=== PATIENT | female | born 1955 ===

== ENCOUNTER 2016-11-16 22:03 | Emergency (ER) | payer OTHER ==
[2016-11-16] MEDS ORDERED: IBUPROFEN 400 MG TABLET (FP) PO ONE (22:10)
--- NOTE | 2016-11-16 22:16 | PDOC ---
History of Present Illness - General Chief Complaint: Bone Injury Stated Complaint: PAIN AND SWELLING TO LEFT ANKLE Time Seen by Provider: 11/16/16 22:09 History Source: Patient, Family Exam Limitations: Language Barrier - History of Present Illness Initial Comments: 11/16/16 22:10 61y F hx of htn, hl, glaucoma, presents with L ankle and foot pain. The pt was walking around in a grassy area this afternoon and tripped, she had mild pain in the L ankle imediatly but was able to ambulate. The pain worsened to the point it is difficult to ambulate. The pt denies any head injury, loc, neck pain , back pain. She also endorse scraping her R knee on the pavement edge. She landed in a seated position. Pt denies any chest pain, shortness, of breath, abdominal pain. 11/16/16 22:18 history taken in uzbek with assistance of pts family member Past History - Past Medical History Allergies/Adverse Reactions: Allergies Allergy/AdvReac Type Severity Reaction Status Date / Time No Known Allergies Allergy Verified 11/16/16 22:17 Review of Systems - Review of Systems Able to Perform ROS?: Yes Comments:: 11/16/16 22:12 Constitutional - no reported Fever, Chills, HEENT: no reported vision changes, s Respiratory: no reported cough, Cardiac: no reported chest pain, Abd/GI: no reported abd pain, nausea, vomiting, : no reported dysuria, frequency, discharge Musculskelatal - +L ankle pain and swelling, no reported back pain, joint swelling skin - +R knee abrasion no reported bruising, erythema, rash neurological: no reported headache, numbness, focal weakness, tingling, ataxia, hematologic: no reported anemia, easy bruising, easy bleeding *Physical Exam - Physical Exam Comments: 11/16/16 22:16 GENERAL: The patient is awake, alert, and fully oriented, Nontoxic - in no acute distress. HEAD: Normocephalic, atraumatic. NECK: Normal range of motion, supple Back: No midline tenderness to the cervical, thoracic or lumbar spine Musculoskelatal: FROM of b/l shoulders, elbows, wrist. FROM of hips, knees, ankles - No signs of ecchymosis, erythema, or crepitus noted on palpation extremities, chest wall, clavicals, ribs, back. ABDOMEN: Soft, nontender, EXTREMITIES: Normal range of motion of b/l hips, b/l knees, R ankle, L ankle mild edema diffusely tender in the lateral foot along 5th metatarsal, no skin breakdown. no tenderness in the proximal tib/fib, superifical abrasions on L anterior knee without bony tenderness, no active bleeding, clean. NEUROLOGICAL: No facial assymetry, Normal speech, moving all 4 extremities spontaneously and symmetrically ED Treatment Course - RADIOLOGY Radiology Studies Ordered: Category Date Time Status ANKLE & FOOT-LEFT* [RAD] Stat Radiology 11/16/16 22:10 Ordered Medical Decision Making - Medical Decision Making 11/16/16 22:18 61y F s/p mechanical fall here with L ankle/foot pain abrasion: clean, supportive care, bacitracin L ankle pain: motrin, xrays to r/o fx 11/16/16 22:41 11/16/16 23:01 xray noted for 5th metatarsal fracture of L foot, likely zone 1 pt put in hard sole shoe, cayden wrap NSAIDs WBAT ortho follow up return precautions were discussed I discussed the physical exam findings, ancillary test results and final diagnoses with the patient. I answered all of the patient's questions. The patient was satisfied with the care received and felt comfortable with the discharge plan and treatment plan. The patient will call their primary care physician within 24 hours to arrange follow-up and will return to the Emergency Department with any new, persistent or worsening symptoms. *DC/Admit/Observation/Transfer Diagnosis at time of Disposition: Fracture of fifth metatarsal bone of left foot Qualifiers: Encounter type: initial encounter Fracture type: closed Fracture alignment: displaced Qualified Code(s): S92.352A - Displaced fracture of fifth metatarsal bone, left foot, initial encounter for closed fracture - Discharge Dispostion Disposition: HOME Condition at time of disposition: Stable Admit: No - Referrals Referrals: Beltran Khan MD [Staff Physician] - - Patient Instructions Printed Discharge Instructions: DI for Foot Fracture Additional Instructions: Return to the emergency department immediately with ANY new, persistent or worsening symptoms. Weight bearing as tolerated. Use the hard sole she when ambulating. See an orthopedic surgeon for further evaluation in 1-2 days. A copy of your xray was included, liana review this with your doctor. Take motrin/tylenol for pain. You MUST call and follow up with Dr. Khan in 1-2 days or another orthopedic surgeon of your choosing for further evaluation of your symptoms. Results were discussed with you. Please make sure your doctor reviews the results of your emergency evaluation.
[2016-11-16 22:20] VITALS: BP 153/74; PULSE 56; TEMP 98.2; BMI 29.2
[2016-11-16] MEDS ORDERED: IBUPROFEN 600 MG TABLET (FP) PO ONE (22:25)
== END 2016-11-16 23:09 | disposition home or self-care (01) ==
LOC: FER 22:03
DX: S92.352A Displaced fracture of fifth metatarsal bone, left foot, initial encounter for closed fracture (principal); W18.49XA Other slipping, tripping and stumbling without falling, initial encounter; Y93.01 Activity, walking, marching and hiking; Y92.096 Garden or yard of other non-institutional residence as the place of occurrence of the external cause
CPT/HCPCS: 73610-TC-LT; 73630-TC-LT; 99284-25